=== PATIENT | female | born 1975 | race Caucasian/White ===

== ENCOUNTER → 2018-05-23 | Outpatient (CLI) | payer OTHER ==
--- NOTE | 2018-05-23 20:04 | RADIOLOGY REPORT (SQ) ---
EXAM DESCRIPTION: XR FOOT 3 OR MORE VIEWS COMPLETED DATE/TME: 05/23/2018 19:34 CLINICAL HISTORY: 43 years, Female, S90.31XA CONTUSION OF RIGHT FOOT, INITIAL ENCOUNTER COMPARISON: None. NUMBER OF VIEWS: 3 TECHNIQUE: 3 views right foot LIMITATIONS: None. FINDINGS: 1.7 mm ossific density along the lateral soft tissues of the middle phalanx of the second digit could reflect tiny avulsion fracture. Comminuted nondisplaced intra-articular fracture deformity of the proximal phalanx of the fifth digit. Associated soft tissue swelling. Tiny calcaneal spur. No dislocation. Well-defined lucency of the proximal phalanx of the great toe likely reflect bone cyst. IMPRESSION: Comminuted nondisplaced intra-articular fracture of the proximal phalanx of the fifth digit. Punctate density adjacent to the second digit could reflect tiny avulsion fracture. Soft tissue swelling. Probable bone cyst of the great toe. copyright 2010 [email or web address]- All Rights Reserved
== END ==
LOC: RAD 19:29
PROVIDERS: ATTEND Nurse Practitioner Acute Care
DX: S92.514A Nondisplaced fracture of proximal phalanx of right lesser toe(s), initial encounter for closed fracture (principal); X58.XXXA Exposure to other specified factors, initial encounter

== ENCOUNTER 2019-01-16 20:11 | Emergency (ER) | payer OTHER ==
[2019-01-16] MEDS ORDERED: OXYCODONE-ACETAMINOPHEN 5-325 MG TABLET PO ONE ×2 (20:56→23:10)
[2019-01-16] MEDS ORDERED: ACETAMINOPHEN 325 MG TABLET PO ONE (20:56)
--- NOTE | 2019-01-16 20:59 | ER Document Report ---
ED Medical Screen (RME) - General Chief Complaint: Arm Injury Stated Complaint: FALL/RIGHT ARM INJURY Time Seen by Provider: 01/16/19 20:47 Notes: 43-year-old female presents after a mechanical fall in the bathtub injuring her right shoulder and arm. Patient states she is holding in a position of comfort at 90 degrees and cannot straighten her elbow out at all and is in acute, severe pain. Exam: Acute tenderness to palpation, patient exams limited by pain but it appears there is a deformity of the left humerus, 2+ radial pulse, brisk cap refill of the right distal extremity patient intact light touch I have greeted and performed a rapid initial assessment of this patient. A comprehensive ED assessment and evaluation of the patient, analysis of test results and completion of medical decision making process will be conducted by an additional ED providers. TRAVEL OUTSIDE OF THE [place] IN LAST 30 DAYS: No - Related Data Allergies/Adverse Reactions: No Known Allergies Allergy (Unverified 01/16/19 20:42) Past Medical History - Social History Frequency of alcohol use: Occasional Drug Abuse: None Physical Exam - Vital signs Vitals: Temp Pulse Resp BP Pulse Ox 98.6 F 114 H 20 179/113 H 95 01/16/19 20:40 01/16/19 20:40 01/16/19 20:40 01/16/19 20:40 01/16/19 20:40 Course - Vital Signs Vital signs: Temp Pulse Resp BP Pulse Ox 98.6 F 114 H 20 179/113 H 95 01/16/19 20:40 01/16/19 20:40 01/16/19 20:40 01/16/19 20:40 01/16/19 20:40
--- NOTE | 2019-01-16 21:44 | ER Document Report ---
ED General - General Chief Complaint: Arm Injury Stated Complaint: FALL/RIGHT ARM INJURY Time Seen by Provider: 01/16/19 20:47 TRAVEL OUTSIDE OF THE [place] IN LAST 30 DAYS: No - HPI Patient complains to provider of: fall Notes: 43 y/o presenting to ED after falling in the bathroom no head injury or LOC she states she felt like she dislocated her shoulder (has done previously x2) but when she tried to move the arm the pain seemed different and more severe so presented to ED for evaluation has pain basically from shoulder to elbow that is worsened by any attempt at movement she slipped and fell - no syncope - Related Data Allergies/Adverse Reactions: No Known Allergies Allergy (Unverified 01/16/19 20:42) Past Medical History - Social History Smoking Status: Never Smoker Frequency of alcohol use: Occasional Drug Abuse: None Family History: Reviewed & Not Pertinent Patient has suicidal ideation: No Patient has homicidal ideation: No Review of Systems - Review of Systems Constitutional: No symptoms reported EENT: No symptoms reported Cardiovascular: No symptoms reported Respiratory: No symptoms reported Gastrointestinal: No symptoms reported Genitourinary: No symptoms reported Female Genitourinary: No symptoms reported Musculoskeletal: See HPI Skin: No symptoms reported Hematologic/Lymphatic: No symptoms reported Neurological/Psychological: No symptoms reported Physical Exam - Vital signs Vitals: Temp Pulse Resp BP Pulse Ox 98.6 F 114 H 20 179/113 H 95 01/16/19 20:40 01/16/19 20:40 01/16/19 20:40 01/16/19 20:40 01/16/19 20:40 Interpretation: Normal - General General appearance: Appears well, Alert - HEENT Head: Normocephalic, Atraumatic Eyes: Normal Pupils: PERRL Neck: Normal, Other - nontedner c spine posteriorly. No: Anterior cervical chain, Posterior cervical chain, Lymphadenopathy - Respiratory Respiratory status: No respiratory distress Chest status: Nontender Breath sounds: Normal Chest palpation: Normal - Cardiovascular Rhythm: Regular Heart sounds: Normal auscultation Murmur: No - Abdominal Inspection: Normal Distension: No distension Bowel sounds: Normal Tenderness: Nontender Organomegaly: No organomegaly - Back Back: Normal, Nontender - Extremities General upper extremity: Normal inspection, Normal color, Normal ROM, Normal temperature General lower extremity: Normal inspection, Nontender, Normal color, Normal ROM, Normal temperature, Normal weight bearing. No: Joyce's sign Arm: Tender - tender primarily in mid humerus region. normal pulses. normal cap refill. sensation intact. able to range at elbow and wrist normally. no bruising - Neurological Neuro grossly intact: Yes Cognition: Normal Orientation: AAOx4 Juanito Coma Scale Eye Opening: Spontaneous Juanito Coma Scale Verbal: Oriented Juanito Coma Scale Motor: Obeys Commands Juanito Coma Scale Total: 15 Speech: Normal Motor strength normal: LUE, RUE, LLE, RLE Sensory: Normal - Psychological Associated symptoms: Normal affect, Normal mood - Skin Skin Temperature: Warm Skin Moisture: Dry Skin Color: Normal Course - Re-evaluation Re-evalutation: 01/16/19 21:54 xrays to evaluate for fracture/dislocation percocet provided for pain 01/16/19 22:55 xr's w/o fracture sling for comfort percocet rx at discharge orthopedic follow up recommended - Vital Signs Vital signs: Temp Pulse Resp BP Pulse Ox 98.4 F 114 H 16 158/91 H 97 01/16/19 22:09 01/16/19 20:40 01/16/19 21:57 01/16/19 22:00 01/16/19 22:01 - Diagnostic Test Radiology reviewed: Image reviewed, Reports reviewed Procedures - Joint Reduction/Fracture Care Right Arm Notes: 01/16/19 22:56 sling placed to arm Discharge - Discharge Clinical Impression: Elevated blood pressure reading Arm injury Qualifiers: Encounter type: initial encounter Laterality: right Qualified Code(s): S49.91XA - Unspecified injury of right shoulder and upper arm, initial encounter Condition: Stable Disposition: HOME, SELF-CARE Instructions: Arm Pain, Nonspecific ([facility]) Additional Instructions: follow up with orthopedic as outpatient return to the ED with worsening take medicine as directed for pain use sling for comfort Prescriptions: Oxycodone HCl/Acetaminophen [Percocet 5-325 mg Tablet] 1 - 2 tab PO Q4H PRN #15 tablet PRN Reason: Forms: Elevated Blood Pressure Referrals: PATRICK TERAN DO [ACTIVE STAFF] - Follow up as needed
--- NOTE | 2019-01-16 21:59 | RADIOLOGY REPORT (SQ) ---
EXAM DESCRIPTION: CLINICAL HISTORY: 43 years Female, mechanical fall, trauma COMPARISON: None. FINDINGS: No evidence for fracture dislocation. Soft tissues are unremarkable. IMPRESSION: Unremarkable right shoulder series
--- NOTE | 2019-01-16 22:11 | RADIOLOGY REPORT (SQ) ---
EXAM DESCRIPTION: XR ELBOW 3 VIEWS COMPLETED DATE/TME: 01/16/2019 20:56 CLINICAL HISTORY: 43 years, Female, mechanical fall COMPARISON: None. NUMBER OF VIEWS: 4 TECHNIQUE: 4 views right elbow LIMITATIONS: None. FINDINGS: No radiographic evidence for acute fracture or dislocation. Mild degenerative changes of the elbow. No definitive joint effusion IMPRESSION: No radiographic evidence for acute osseous abnormality copyright 2010 [employer]- All Rights Reserved
--- NOTE | 2019-01-16 22:17 | RADIOLOGY REPORT (SQ) ---
EXAM DESCRIPTION: Right humerus [employer]: XR HUMERUS Views: 2 CLINICAL HISTORY: 43 years Female, mechanical fall COMPARISON: None. FINDINGS: Negative for acute fracture, dislocation, or radiopaque foreign body. IMPRESSION: 1. No acute findings.
[2019-01-16 23:16] VITALS: BP 153/98
== END 2019-01-16 23:14 | disposition home or self-care (01) ==
LOC: ER 20:11
DX: S49.91XA Unspecified injury of right shoulder and upper arm, initial encounter (principal); R03.0 Elevated blood-pressure reading, without diagnosis of hypertension; W18.2XXA Fall in (into) shower or empty bathtub, initial encounter; Y93.E1 Activity, personal bathing and showering; Y92.002 Bathroom of unspecified non-institutional (private) residence as the place of occurrence of the external cause
CPT/HCPCS: 99283